=== PATIENT | female | born 1985 | race Caucasian/White ===

== ENCOUNTER 2017-10-04 04:37 | Emergency (ER) | payer BC ==
[2017-10-04 04:59] VITALS: BP 124/78
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
== END 2017-10-04 06:15 | disposition home or self-care (01) ==
LOC: JD.ED 04:37
DX: S01.511A Laceration without foreign body of lip, initial encounter (principal); S23.9XXA Sprain of unspecified parts of thorax, initial encounter; S40.022A Contusion of left upper arm, initial encounter; S40.021A Contusion of right upper arm, initial encounter; S20.229A Contusion of unspecified back wall of thorax, initial encounter; Z88.5 Allergy status to narcotic agent; Y04.0XXA Assault by unarmed brawl or fight, initial encounter
CPT/HCPCS: 99283

== ENCOUNTER 2018-01-29 14:56 | Emergency (ER) | payer BC ==
[2018-01-29 15:44] VITALS: BP 122/86
[2018-01-29] MEDS ORDERED: Sodium Chloride 0.9% 10 ML Syringe FLUSH PRN (16:04)
[2018-01-29] MEDS ORDERED: Sodium Chloride 0.9% 1,000 ML IV ONE (16:04)
[2018-01-29] MEDS ORDERED: Metoclopramide 10 MG/2 ML SDV IVPUSH ONE (16:05)
[2018-01-29] MEDS ORDERED: diphenhydrAMINE 50 MG/ML SDV IVPUSH ONE (16:05)
--- NOTE | 2018-01-29 16:17 | EDM.PDOC ---
ED HPI GENERAL MEDICAL PROBLEM - General Chief Complaint: Headache Stated Complaint: HEADACHE,NAUSEA,TUNNEL VISION Time Seen by Provider: 01/29/18 16:11 Source of Information: Reports: Patient History Limitations: Reports: No Limitations - History of Present Illness INITIAL COMMENTS - FREE TEXT/NARRATIVE: 32-year-old female presents for evaluation and treatment of a headache. Patient reports the headache is located on the frontal and occipital area. She states that it started suddenly yesterday. Reports at the time she's taken her kids up from school. Currently rates the pain is an 8 out of 10. She reports standing and bending over make the pain is significantly worse. She states this is the worst headache she is around her life. No history of migraine headaches. Reports associated symptoms of nausea and photophobia. No fevers, cough or cold symptoms or vomiting. She states she has tried multiple [id number] medications including Tylenol, Excedrin, Motrin, peppermints and many other different options but has not found any relief. Primary care provider is Tamia Valdez. Onset: Sudden (yesterday) Headache Pain Score (Numeric/FACES): 8 - Related Data Allergies Allergy/AdvReac Type Severity Reaction Status Date / Time codeine Allergy Vomiting Verified 10/04/17 04:59 Home Meds: Home Meds Etonogestrel [Nexplanon] 68 mg SQ ASDIRECTED 12/17/16 [History] Sertraline HCl [Zoloft] 150 mg PO DAILY 01/29/18 [History] Past Medical History Psychiatric History: Reports: Anxiety, Depression Endocrine/Metabolic History: Reports: Obesity/BMI 30+ - Past Surgical History Female Surgical History: Reports: Section Social & Family History - Family History Family Medical History: Noncontributory - Tobacco Use Smoking Status *Q: Unknown Ever Smoked Years of Tobacco use: 16 Packs/Tins Daily: 1.5 - Caffeine Use Caffeine Use: Reports: None - Recreational Drug Use Recreational Drug Use: No - Living Situation & Occupation Living situation: Reports: , with Spouse, with Family Occupation: Employed ED ROS GENERAL - Review of Systems Review Of Systems: See Below Constitutional: Denies: Fever HEENT: Reports: Other (reports photophobia) Respiratory: Denies: Cough GI/Abdominal: Reports: Nausea. Denies: Vomiting Neurological: Reports: Headache - Physical Exam Exam: See Below Exam Limited By: No Limitations General Appearance: Alert, WD/WN, No Apparent Distress Eye Exam: Bilateral Eye: Normal Inspection, PERRL Ears: Normal External Exam, Normal Canal, Hearing Grossly Normal, Normal TMs Nose: Normal Inspection Throat/Mouth: Normal Inspection, Normal Lips, Normal Voice, No Airway Compromise Neck: Normal Inspection Respiratory/Chest: No Respiratory Distress, Lungs Clear, Normal Breath Sounds Cardiovascular: Normal Peripheral Pulses, Regular Rate, Rhythm, No Murmur Neuro Exam (Abbreviated): Alert, Oriented, CN II-XII Intact, Normal Cognition, Normal Gait, No Motor/Sensory Deficits Psychiatric: Normal Affect, Normal Mood Skin Exam: Warm, Dry, Normal Color Course - Vital Signs Last Recorded V/S: Last Vital Signs Temp 37.1 C 01/29/18 15:41 Pulse 82 01/29/18 15:41 Resp 18 01/29/18 15:41 BP 122/86 01/29/18 15:41 Pulse Ox 98 01/29/18 15:41 - Orders/Labs/Meds Meds: Medications Discontinued Medications Generic Name Dose Route Start Last Admin Trade Name Jeffreyq PRN Reason Stop Dose Admin Diphenhydramine HCl 50 mg 01/29/18 16:05 01/29/18 16:28 Benadryl IVPUSH 01/29/18 16:06 50 mg ONETIME ONE Administration Sodium Chloride 1,000 mls @ 999 mls/hr 01/29/18 16:04 01/29/18 16:27 Normal Saline IV 01/29/18 17:04 999 mls/hr ONETIME ONE Administration Ketorolac Tromethamine 30 mg 01/29/18 16:40 01/29/18 16:55 Toradol IVPUSH 01/29/18 16:41 30 mg ONETIME ONE Administration Metoclopramide HCl 10 mg 01/29/18 16:05 01/29/18 16:26 Reglan IVPUSH 01/29/18 16:06 10 mg ONETIME ONE Administration Sodium Chloride 10 ml 01/29/18 16:04 01/29/18 16:28 Saline Flush FLUSH 10 ml ASDIRECTED PRN Administration Keep Vein Open - Radiology Interpretation Free Text/Narrative:: Head without contrast impression per [facility]: No acute intracranial process CT Results Date: 01/29/18 - Re-Assessments/Exams Free Text/Narrative Re-Assessment/Exam: 01/29/18 18:00 Checked on the patient. She is doing much better. Rates her headache is 3 out of 10. Review[address] CT results with the patient. This comfortable going home at this time. Discharge instructions as documented. Departure - Departure Time of Disposition: 18:00 Disposition: Home, Self-Care 01 Condition: Good Clinical Impression: Headache - Discharge Information Instructions: General Headache Without Cause Referrals: Laura Valdez CHARGEBACK SPECIALIST [Primary Care Provider] - Forms: ED Department Discharge, ED Return to Work/School Form Additional Instructions: go home and rest in a dark quiet room. Make sure drinking plenty of fluids. Follow-up with primary care if you continue to have problems with headaches. Please return to the ER if your symptoms change or worsen.
[2018-01-29] MEDS ORDERED: Ketorolac 30 MG/ML SDV IVPUSH ONE (16:40)
--- NOTE | 2018-01-30 14:21 | CT ---
Head CT Technique: Multiple axial sections through the brain were obtained. Intravenous contrast was not utilized. Comparison: No previous intracranial imaging is available. Findings: Ventricles along with basal cisterns and sulci over the convexities are within normal limits for the patient's age. No abnormal parenchymal densities are seen. No evidence of intracranial hemorrhage. No midline shift or mass effect is seen. Bone window settings were reviewed which show no acute calvarial abnormality. Visualized sinuses show nothing acute. Impression: 1. Nothing acute is seen on noncontrast head CT exam. Diagnostic code #1 I agree with preliminary report issued by [facility] ([facility] report finalized on 01/29/18, 5:37 PM Central Time)
== END 2018-01-29 18:30 | disposition home or self-care (01) ==
LOC: JD.ED 14:56
DX: R51 Headache (principal); F32.9 Major depressive disorder, single episode, unspecified; Z72.0 Tobacco use; Z79.899 Other long term (current) drug therapy; Z88.5 Allergy status to narcotic agent
CPT/HCPCS: 70450; 96361; 96374; 96375; 99284; J1200; J1885; J2765; J7040; J7050

== ENCOUNTER 2020-11-18 06:21 | Emergency (ER) | payer BC, MEDICAID ==
[2020-11-18 06:48] VITALS: BP 117/77; PULSE 80
--- NOTE | 2020-11-18 07:39 | EDM.PDOC ---
ED HPI GENERAL MEDICAL PROBLEM - General Chief Complaint: ENT Problem Stated Complaint: ENT COMPLAINT-SWOLLEN THROAT/PAIN Time Seen by Provider: 11/18/20 07:29 - History of Present Illness INITIAL COMMENTS - FREE TEXT/NARRATIVE: 35-year-old female presents the emergency room with dental and jaw pain. Patient had a right lower jaw rear molar removed . Since that time she is developed worsening discomfort in this area and is started to notice some swelling developing under her jaw and starting to extend into her lower neck. Is not aware of any fevers or chills. The patient wears an N95 at work and cannot tolerate the pressure this is putting on her neck. Patient is not aware of having any fever or chills. The pain does extend into the front of her ear she uses Tylenol with some success with this. Patient does not have any other underlying medical issues. Right Neck Pain Score (Numeric/FACES): 8 - Related Data Allergies Allergy/AdvReac Type Severity Reaction Status Date / Time codeine AdvReac Vomiting Verified 11/18/20 06:48 Home Meds: Home Meds Etonogestrel [Nexplanon] 68 mg SQ ASDIRECTED 12/17/16 [History] Sertraline HCl [Zoloft] 150 mg PO DAILY 01/29/18 [History] Amoxicillin/Potassium Clav [Amox Tr-K Clv 875-125 mg Tab] 1 each PO BID #19 tablet 11/18/20 [Rx] Past Medical History Psychiatric History: Reports: Anxiety, Depression Endocrine/Metabolic History: Reports: Obesity/BMI 30+ - Past Surgical History Female Surgical History: Reports: Section Musculoskeletal Surgical History: Reports: Other (See Below) Other Musculoskeletal Surgeries/Procedures:: r knee surgery on miniscus Social & Family History - Family History Family Medical History: No Pertinent Family History - Tobacco Use Tobacco Use Status *Q: Current Every Day Tobacco User Years of Tobacco use: 10 Packs/Tins Daily: 0.3 - Caffeine Use Caffeine Use: Reports: None - Recreational Drug Use Recreational Drug Use: No - Living Situation & Occupation Living situation: Reports: , with Spouse, with Family Occupation: Employed ED ROS ENT - Review of Systems Review Of Systems: See Below Constitutional: Reports: No Symptoms HEENT: Reports: Dental Pain. Denies: Rhinitis, Throat Pain, Throat Swelling Respiratory: Reports: No Symptoms Cardiovascular: Reports: No Symptoms GI/Abdominal: Reports: Decreased Appetite. Denies: Abdominal Pain, Constipation, Diarrhea, Nausea, Vomiting ED EXAM, ENT - Physical Exam Exam: See Below Exam Limited By: No Limitations General Appearance: Alert, No Apparent Distress Eye Exam: Bilateral Eye: Normal Inspection Ears: Normal External Exam, Normal Canal, Hearing Grossly Normal, Normal TMs Nose: Normal Inspection, Normal Mucousa, No Blood Mouth/Throat: Normal Lips, Normal Oropharynx, Normal Teeth, Other (The patient's extraction site looks actually fairly well at this point no drainage no significant erythema no significant swelling. This is the right lower molar rear.) Head: Other (Minimal right facial swelling along the lower jaw this extends around the angle of the jaw up towards the ear.) Neck: Supple, Full Range of Motion, Lymphadenopathy (R), Other (She has some discomfort along the lower jaw extending towards the neck.). No: Lymphadenopath y (L), Tender Midline Course - Vital Signs Last Recorded V/S: Last Vital Signs Temp 36.4 C 11/18/20 06:44 Pulse 80 11/18/20 06:44 Resp 18 11/18/20 06:44 BP 117/77 11/18/20 06:44 Pulse Ox 96 11/18/20 06:44 - Re-Assessments/Exams Free Text/Narrative Re-Assessment/Exam: 11/18/20 07:53 At this point we discussed given the amoxicillin some more time to see if this works versus changing her to Augmentin the patient would like to try the A ugmentin which I think is reasonable. I did discuss the possibility of developing an abscess albeit I think this is highly unlikely. Did offer CT evaluation but the patient would like to hold off on this with the low probability of finding an abscess. Patient does agree to return in the next 24 to 48 hours if not improving sooner if getting worse. Departure - Departure Time of Disposition: 07:54 Disposition: Home, Self-Care 01 Clinical Impression: Swelling associated with dental structure - Discharge Information Referrals: Jodi Christensen PA-C [Primary Care Provider] - Forms: ED Department Discharge, ED Return to Work/School Form Additional Instructions: Return to the emergency room with any questions problems or worsening symptoms. Return in 24 to 48 hours if not improving sooner if getting worse. Stop the amoxicillin start Augmentin. Take the Augmentin twice daily until all gone. Your prescription has been sent electronically to [facility] pharmacy up by [place]. Try and follow-up with your dentist early this next week. Sepsis Event Note (ED) - Evaluation Sepsis Screening Result: No Definite Risk - Focused Exam Vital Signs: Vital Signs Temp Pulse Resp BP Pulse Ox 11/18/20 06:44 36.4 C 80 18 117/77 96
[2020-11-18] MEDS ORDERED: Amoxicillin/Clavulanate K 875-125 MG Tab PO ONE (07:43)
== END 2020-11-18 08:10 | disposition home or self-care (01) ==
LOC: JD.ED 06:21
DX: K08.89 Other specified disorders of teeth and supporting structures (principal); F41.9 Anxiety disorder, unspecified; F32.9 Major depressive disorder, single episode, unspecified; F17.210 Nicotine dependence, cigarettes, uncomplicated; E66.9 Obesity, unspecified; Z68.41 Body mass index [BMI] 40.0-44.9, adult; Z88.5 Allergy status to narcotic agent; Z79.899 Other long term (current) drug therapy
CPT/HCPCS: 99282; A9270

== ENCOUNTER 2023-03-23 14:13 | Emergency (ER) | payer BC ==
[2023-03-23 14:23] VITALS: BP 135/79; PULSE 114
[2023-03-23] MEDS ORDERED: Sodium Chloride 0.9% 10 ML Syringe FLUSH PRN (14:44)
[2023-03-23] MEDS ORDERED: Morphine 2 MG/ML SYRINGE IVPUSH PRN (14:44)
[2023-03-23] MEDS ORDERED: Aspirin 81 MG Tab.Chew PO ONE (14:44)
[2023-03-23 15:10] LABS: ESTIMATED GFR 116 mL/min (>60)
== END 2023-03-23 16:44 | disposition home or self-care (01) ==
LOC: JD.ED 14:13
DX: R07.89 Other chest pain (principal); M79.602 Pain in left arm; E66.9 Obesity, unspecified; Z68.42 Body mass index [BMI] 45.0-49.9, adult; F17.210 Nicotine dependence, cigarettes, uncomplicated; Z88.5 Allergy status to narcotic agent
CPT/HCPCS: 36415; 71045; 80053; 84484; 85025; 85379; 93005; 96374; 99285; A9270; J2270; J3490; 93010; 99284